=== PATIENT | female | born 1990 | race Caucasian/White ===

== ENCOUNTER 2018-07-11 09:39 | Emergency (ER) | payer OTHER ==
[2018-07-11 09:53] VITALS: BP 125/74; PULSE 94; TEMP 98.2; BMI 37.1
--- NOTE | 2018-07-11 10:05 | PDOC ---
History of Present Illness - General Chief Complaint: Back Pain Stated Complaint: LOWER BACK PAIN Time Seen by Provider: 07/11/18 09:58 - History of Present Illness Initial Comments: 07/11/18 12:52 Chief complaint: Low back pain History of present illness: Patient is reaching down to place something in the refrigerator, suddenly experienced left low back pain and tightness. This is progressively worse. Similar episodes in the past due to certain activities, usually resolves spontaneously. Review of systems: Denies radiation of the pain to the legs, denies distal pain numbness tingling or weakness to the lower extremities. Denies visual or focal neurologic symptoms, unsteadiness of gait. Denies chest pain, shortness of breath, abdominal pain, nausea, vomiting, diarrhea, urinary tract symptoms, vaginal bleeding or discharge. Past medical history: Healthy female except for mild obesity, recurrent minor low back pain, never worked up. Childbirth. Social/family history reviewed and noncontributory Physical exam: Alert and oriented moderately obese but in no acute distress, cooperative Afebrile, vital signs normal HEENT clear. PERRLA 4 mm, fundi benign with sharp disc margins and good central venous pulsations Neck supple without bruit mass or nodes. No point tenderness or deformity Lungs clear CV regular without murmur rub or gallop Abdomen benign Neurological C2 to 12 intact. No focal sensory or motor deficits. LS spine no point tenderness or deformity. No inflammatory changes. Moderate tilt suggestive of muscle spasm. Straight leg raising negative Impression: Low back strain, radiculopathy Plan: Since no imaging has yet been performed, x-ray and further evaluation depending on results. Symptomatic treatment and follow-up. Past History - Past Medical History Allergies/Adverse Reactions: Allergies Allergy/AdvReac Type Severity Reaction Status Date / Time Sulfa (Sulfonamide Allergy Verified 07/11/18 09:40 Antibiotics) Home Medications: Ambulatory Orders Cyclobenzaprine HCl [Flexeril] 10 mg PO TID #15 tablet 07/11/18 Diclofenac Sodium [Voltaren -] 75 mg PO BID #14 tablet. 07/11/18 Oxycodone HCl/Acetaminophen [Percocet 5-325 mg Tablet] 1 - 2 tab PO Q6H PRN #20 tab MDD 8 07/11/18 COPD: No - Suicide/Smoking/Psychosocial Hx Smoking History: Never smoked Have you smoked in the past 12 months: No Information on smoking cessation initiated: No Hx Alcohol Use: No Drug/Substance Use Hx: No Substance Use Type: None *Physical Exam - Vital Signs Last Vital Signs Temp Pulse Resp BP Pulse Ox 98.2 F 94 H 20 125/74 100 07/11/18 09:39 07/11/18 09:39 07/11/18 09:39 07/11/18 09:39 07/11/18 09:39 Medical Decision Making - Medical Decision Making 07/11/18 12:55 X-rays negative. Patient much improved with medication. Although Toradol was partially effective , got added relief with Percocet Plan: Back care and medication as needed. Follow-up camouflage specialist as necessary. Adequately ambulatory and in no significant pain or other distress upon discharge with to follow-up as directed *DC/Admit/Observation/Transfer Diagnosis at time of Disposition: Low back strain Qualifiers: Encounter type: initial encounter Qualified Code(s): S39.012A - Strain of muscle, fascia and tendon of lower back, initial encounter - Discharge Dispostion Disposition: HOME Condition at time of disposition: Improved Decision to Admit order: No - Prescriptions Prescriptions: Cyclobenzaprine HCl [Flexeril] 10 mg PO TID #15 tablet Diclofenac Sodium [Voltaren -] 75 mg PO BID #14 tablet. Oxycodone HCl/Acetaminophen [Percocet 5-325 mg Tablet] 1 - 2 tab PO Q6H PRN #20 tab MDD 8 PRN Reason: Severe Pain - Referrals Referrals: Paul Liao MD [Staff Physician] - 1 week - Patient Instructions Printed Discharge Instructions: DI for Low Back Pain, Activity May Be Better then Rest for Low Back Pain Recovery Additional Instructions: Rest, heat, medication as directed. Gentle stretching. Avoid sitting in a chair. See Back Specialist if no improvement one week. - Post Discharge Activity Forms/Work/School Notes: Back to Work
[2018-07-11] MEDS ORDERED: hydrOXYzine PAMOATE 50 MG CAPSULE (FP) PO ONE (10:11)
[2018-07-11] MEDS ORDERED: KETOROLAC TROMETHAMINE 60 MG/2 ML VIAL IM ONE (10:11)
[2018-07-11] MEDS ORDERED: KETOROLAC TROMETHAMINE 60 MG/2 ML VIAL ONE (10:15)
[2018-07-11] MEDS ORDERED: hydrOXYzine PAMOATE 25 MG CAPSULE (FP) PO ONE (10:15)
== END 2018-07-11 11:54 | disposition home or self-care (01) ==
LOC: FER 09:39
PROC: 3E0233Z Introduction of Anti-inflammatory into Muscle, Percutaneous Approach (ICD-10-PCS; principal; 2018-07-11)
DX: S39.012A Strain of muscle, fascia and tendon of lower back, initial encounter (principal); X58.XXXA Exposure to other specified factors, initial encounter; Y93.89 Activity, other specified; Y92.9 Unspecified place or not applicable
CPT/HCPCS: 72100-TC-FY; 84703; 99282-25